=== PATIENT | male | born 1990 | race Caucasian/White ===

== ENCOUNTER → 2018-06-05 | Outpatient (CLI) | payer BC ==
--- NOTE | 2018-06-05 17:22 | RADIOLOGY IMAGING REPORT ---
FACILITY: PATIENT NAME: Irvin Shaver : 1990 MR: [id number] V: [id number] EXAM DATE: ORDERING PHYSICIAN: DAVIDE ZIEGLER TECHNOLOGIST: Location: [facility] [place] Patient: Irvin Shaver : 1990 Visit/Account:[id number] Date of Sevice: 06/05/2018 TESTICULAR HISTORY: Epididymitis left testicle pain x3 days COMPARISON: None. FINDINGS: Testes: Right testicle measures 2.5 x 1.9 x 2.9 cm. Left testicle measures 3.7 x 1 2 x 2.7 cm Symme tric and unremarkable blood flow documented by color and Duplex Doppler ultrasound. Epididymides: Head the epididymis on the right measures 6 mm on the left 8 mm Blood flow is unremark able in each epididymis by color Doppler ultrasound. Hydrocele: There are small bilateral hydroceles Varicocele: None. Results were called to DAVIDE ZIEGLER at 06/05/2018 5:17 PM. IMPRESSION: Small bilateral hydroceles Report Dictated By: Janina Lemus MD at 06/05/2018 5:13 PM Report E-Signed By: Janina Lemus MD at 06/05/2018 5:17 PM WSN:[id number]
== END ==
LOC: US 16:35
PROVIDERS: ATTEND Nurse Practitioner Family
DX: N43.3 Hydrocele, unspecified (principal); N45.1 Epididymitis
CPT/HCPCS: 76870